=== PATIENT | male | born 1970 | race Caucasian/White ===

== ENCOUNTER 2017-10-24 14:36 | Emergency (ER) | payer BC, MEDICAID, SELFPAY ==
[2017-10-24 14:37] VITALS: BP 162/111; PULSE 72; RESP 18; TEMP 37.4; O2SAT 97; BMI 34.2
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
[2017-10-24] MEDS: Naproxen 500 MG Tablet PO (16:26)
== END 2017-10-24 16:30 | disposition home or self-care (01) ==
PROVIDERS: Emergency Provider Emergency Medicine; Family Provider Family Medicine; PCP Family Medicine
DX: R51 Headache (principal); R10.9 Unspecified abdominal pain; V43.52XA Car driver injured in collision with other type car in traffic accident, initial encounter; Y93.9 Activity, unspecified; Y92.410 Unspecified street and highway as the place of occurrence of the external cause; Y99.9 Unspecified external cause status; I10 Essential (primary) hypertension
CPT/HCPCS: 99283

== ENCOUNTER → 2018-04-20 11:32 | Outpatient (CLI) | payer BC, MEDICAID, SELFPAY ==
[2018-04-20 15:45] LABS: Cholesterol 182 mg/dL (200); Glucose 87 mg/dL (74-106); High Density Lipoprotein 36 mg/dL; Triglycerides 128 mg/dL; Very Low Density Lipoprotein 26 mg/dL (5-40)
== END ==
PROVIDERS: Family Provider Family Medicine; PCP Family Medicine; Visit Provider Family Medicine
DX: Z00.00 Encounter for general adult medical examination without abnormal findings (principal)
CPT/HCPCS: 36415; 80061; 82947

== ENCOUNTER → 2018-12-03 10:54 | Outpatient (CLI) | payer BC, SELFPAY ==
[2018-12-03 12:47] LABS: Absolute Lymphocyte Count 2.76 X10^3/ul (0.83-4.51); Absolute Neutrophil Count 5.7 X10^3/uL (2.0-7.7); Basophil# 0.04 X10^3/uL; Basophil% 0.4 % (0-1); Differential Indicated SCAN CRITERIA MET; Eosinophil# 0.23 X10^3/uL; Eosinophils% 2.4 % (0-5); Lymphocyte # 2.76 X10^3/ul (4.0); Lymphocyte % 28.5 % (19-41); Mean Corp Hgb Conc 32.5 g/gl (32-36); Mean Corpuscular Hgb 19.7 pg (27.0-32.0); Mean Corpuscular Volume 60.6 fL (80-94); Monocyte# 0.92 X10^3/uL; Monocyte% 9.5 % (0-10); Neutrophil # 5.74 X10^3/uL (2.7-7.7); Neutrophil % 59.1 % (47-70); POSITIVE COUNT NO; POSITIVE DIFFERENTIAL NO; POSITIVE MORPHOLOGY YES; Platelet Count 167 K/mm3 (150-450); RBC Distribution Width CV 16.3 % (11.6-14.6); RBC Distribution Width SD 33.9 fl (35.1-43.9); White Blood Count 9.7 K/mm3 (4.4-11.0)
[2018-12-03 13:05] LABS: Platelet Morphology LARGE
[2018-12-03 13:09] LABS: Hemoglobin A1c 7.9 % (4.2-6.3)
[2018-12-03 13:31] LABS: ALB/GLOB Ratio 1.4 RATIO (0.9-2.4); AST(SGOT) 21 U/L (15-37); Alanine Aminotransfer ALT/SGPT 46 U/L (16-61); Albumin, Serum 4.3 g/dL (3.2-5.0); Alkaline Phosphatase 106 U/L (45-117); Anion Gap 7 (5-15); BUN 13 mg/dL (7-18); BUN/Creat Ratio 11.2 RATIO (10-20); Chloride 104 mmol/L (98-107); Creatinine, Serum 1.16 mg/dL (0.70-1.30); EST Glomerular Filtration Rate 72 mL/min (>60); Est Glom Filt Rate - Afr Amer 87 mL/min (>60); Ferritin 450 ng/mL (26-388); Glucose 167 mg/dL (74-106); Magnesium 2.1 mg/dL (1.6-2.6); Potassium 3.6 mmol/L (3.5-5.1); Protein, Total 7.3 g/dL (6.4-8.2); Sodium Level 137 mmol/L (136-145); Thyroid Stim Hormone (TSH) 4.06 uIU/mL (0.358-3.74)
== END ==
PROVIDERS: Family Provider Family Medicine; PCP Family Medicine; Referring Provider Family Medicine; Visit Provider Family Medicine
DX: E29.1 Testicular hypofunction (principal); E11.9 Type 2 diabetes mellitus without complications; D56.9 Thalassemia, unspecified; I10 Essential (primary) hypertension
CPT/HCPCS: 36415; 80053; 82728; 83036; 83735; 84403; 84443; 85025

== ENCOUNTER → 2020-04-04 12:01 | Outpatient (CLI) | payer OTHER, MEDICARE, SELFPAY ==
--- NOTE | 2020-04-04 12:10 | RAD_ITS ---
STUDY: X-RAY - PELVIS AND BILATERAL HIPS REASON FOR EXAM: Male, 49 years old. BILATERAL HIP PAIN,NO INJURY TECHNIQUE: AP view of the pelvis.? 2 views of the right hip, and 2 views of the left hip were obtained. COMPARISON: None. FINDINGS: There is a non-specific bowel gas pattern. There are multiple calcified phleboliths. Normal bilateral iliac wings, sacroiliac joints and visualized sacrum. Normal bilateral superior and inferior pubic rami. Normal pubic symphysis. Normal bilateral ischial tuberosities. Degenerative spurring. Findings suggestive of femoral acetabular impingement. There is osteoarthritic spur formation of the right acetabular rim. There is moderate articular joint space narrowing of the right hip. Degenerative spurring of the femoral head. There is osteoarthritic spur formation of the left acetabular rim. There is moderate articular joint space narrowing of the left hip. Femoral acetabular impingement. RAD/Hips B/L min 2 views w/ Pelvis IMPRESSION: Bilateral joint space narrowing and femoral acetabular impingement. Electronically Signed: Arben Aburto, at 16:01 EDT , Service support ,
== END ==
PROVIDERS: PCP Family Medicine; Referring Provider Family Medicine; Visit Provider Family Medicine
DX: M25.50 Pain in unspecified joint (principal)
CPT/HCPCS: 73521

== ENCOUNTER → 2020-11-07 10:57 | Outpatient (CLI) | payer OTHER, MEDICARE, SELFPAY ==
--- NOTE | 2020-11-07 11:06 | MRI_ITS ---
STUDY: MRI BRAIN WITH AND WITHOUT CONTRAST (ATTENTION INTERNAL AUDITORY CANALS - I.A.C.''s) REASON FOR EXAM: Male, 50 years old. Right year hearing loss TECHNIQUE: Standardized multiplanar fat and water weighted pulse sequences were obtained. 22ml Dotarem contrast material was administered intravenously for the contrast portion of the examination. COMPARISON: None. FINDINGS: Normal bilateral temporal bones. Normal bilateral internal auditory canals. There is no demonstrated intracanalicular or cisternal vestibular schwannoma (acoustic neuroma). There is no enhancement of the bilateral VIIth or VIIIth cranial nerves. Normal bilateral cochlea, vestibules and semicircular canals. Normal size of the ventricles and extra-axial spaces for the patient''s age. Normal white matter tracts of the supratentorial brain. There is no evidence for recent intracranial ischemia or other cause of cytotoxic edema on diffusion weighted imaging (DWI). Normal bilateral basal ganglia. Normal thalami. Normal flow voids within the major intracranial circulation suggesting patency by spin echo criteria. Normal venous enhancement. There is no enhancing intra-axial or extra-axial abnormality. There is no extra-axial fluid accumulation. Normal sella turcica, pituitary gland, infundibular stalk, optic chiasm and hypothalamus. Normal tectal plate and pineal gland. Normal midbrain, silvio and medulla. Normal cerebellum. Normal basal cisterns. No demonstrated orbital abnormality, within the constraints of a routine brain study. Normal visualized paranasal sinuses. Normal calvarium and skull base. Normal visualized soft tissue structures. Normal visualized upper cervical spine. MRI/Brain W/WO Contrast IMPRESSION: Normal unenhanced and enhanced MRI of the bilateral internal auditory canals (I.A.C''s). Electronically Signed: Juan Carlos Ramos MD at 20:05 EDT , Service support ,
== END ==
PROVIDERS: PCP Family Medicine; Referring Provider Otolaryngology; Visit Provider Otolaryngology
DX: H90.41 Sensorineural hearing loss, unilateral, right ear, with unrestricted hearing on the contralateral side (principal)
CPT/HCPCS: 70553; A9575

== ENCOUNTER → 2020-11-13 10:08 | Outpatient (CLI) | payer OTHER, MEDICARE, SELFPAY ==
[2020-11-13 12:26] LABS: Absolute Lymphocyte Count 3.02 X10^3/uL (0.83-4.51); Absolute Neutrophil Count 3.6 X10^3/uL (2.0-7.7); Basophil# 0.09 X10^3/uL; Basophil% 1.2 % (0-1); Eosinophil# 0.23 X10^3/uL; Hematocrit 42.8 % (40-54); Lymphocyte # 3.02 X10^3/ul (4.0); Mean Corp Hgb Conc 30.4 g/dL (32-36); Mean Corpuscular Hgb 19.1 pg (27.0-32.0); Mean Platelet Vol. 10.9 fl (6.2-12.0); Monocyte# 0.64 X10^3/uL; Monocyte% 8.5 % (0-10); NRBC Flagged by Analyzer 0 % (0-5); Neutrophil # 3.55 X10^3/uL (2.7-7.7); Platelet Count 223 K/mm3 (150-450); RBC Distribution Width CV 17.9 % (11.6-14.6); RBC Distribution Width SD 34.7 fl (35.1-43.9); Red Blood Count 6.79 M/mm3 (4.6-6.2); White Blood Count 7.6 K/mm3 (4.4-11.0)
[2020-11-13 12:48] LABS: ALB/GLOB Ratio 1.3 RATIO (0.9-2.4); AST(SGOT) 18 U/L (15-37); Alanine Aminotransfer ALT/SGPT 58 U/L (16-61); Albumin, Serum 4.2 g/dL (3.2-5.0); Alkaline Phosphatase 112 U/L (45-117); Anion Gap 5 (5-15); BUN 13 mg/dL (7-18); Calcium,Total 9.2 mg/dL (8.5-10.1); Chloride 101 mmol/L (98-107); Creatinine, Serum 1.18 mg/dL (0.70-1.30); EST Glomerular Filtration Rate 70 mL/min (>60); Est Glom Filt Rate - Afr Amer 84 mL/min (>60); Globulin 3.3 g/dL (2.2-4.2); Glucose 261 mg/dL (74-106); Potassium 4.1 mmol/L (3.5-5.1); Protein, Total 7.5 g/dL (6.4-8.2); Sodium Level 137 mmol/L (136-145)
[2020-11-13 12:54] LABS: Hemoglobin A1c 11.4 % (3.8-5.6)
== END ==
PROVIDERS: Visit Provider Family Medicine
DX: E11.9 Type 2 diabetes mellitus without complications (principal); M16.10 Unilateral primary osteoarthritis, unspecified hip
CPT/HCPCS: 36415; 80053; 83036; 85025

== ENCOUNTER → 2021-07-26 13:45 | Outpatient (CLI) | payer OTHER, MEDICARE, SELFPAY ==
--- NOTE | 2021-07-26 13:48 | CT_ITS ---
STUDY: CT PELVIS WITH CONTRAST REASON FOR EXAM: Male, 50 years old. Right groin pain. Prior hernia repair. RADIATION DOSAGE (If Supplied By Facility): CTDIvol = ( 27.97 ) mGy, DLP = ( 1222.90 ) mGycm TECHNIQUE: Transaxial imaging of the pelvis was performed without oral contrast. IV 100mL Isovue-370 was administered intravenously. Individualized dose optimization techniques were used for this CT. COMPARISON: None. FINDINGS: Mild degree of diffuse bladder wall thickening of the urinary bladder is not completely distended at this time. Prostate calcifications. Normal visualized small intestine. There are scattered colonic diverticula of the sigmoid colon consistent with chronic diverticulosis. There is no pelvic fluid. There is no pelvic lymphadenopathy or mass lesion. Normal visualized pelvic arteries. Small bilateral inguinal hernias containing fat slightly larger on the right side. Normal osseous structures. CT/Pelvis WITH IV Contrast IMPRESSION: Mild degree of diffuse bladder wall thickening of the lateral is not completely distended. Small bilateral inguinal hernias containing fat slightly larger on the right side. Electronically Signed: Arben Aburto MD at 14:16 EST , Service support ,
[2021-07-26 14:01] LABS: CREATININE FINGERSTICK < 0.6 mg/dL (0.70-1.30); EGFR FINGERSTICK > 60.0000 mL/min (>60)
== END ==
PROVIDERS: PCP Family Medicine; Visit Provider Family Medicine
DX: K46.9 Unspecified abdominal hernia without obstruction or gangrene (principal)
CPT/HCPCS: 72193; Q9967

== ENCOUNTER → 2021-08-01 15:04 | Outpatient (CLI) | payer OTHER, MEDICARE, SELFPAY | PROVIDERS: PCP Family Medicine; Visit Provider Nurse Practitioner Family | DX: U07.1 COVID-19 (principal) | CPT/HCPCS: 87635; U0005; U0003 ==

== ENCOUNTER → 2022-04-02 | Outpatient (CLI) | payer OTHER, MEDICARE, SELFPAY ==
[2022-04-02 12:29] LABS: Absolute Lymphocyte Count 2.36 X10^3/uL (0.83-4.51); Absolute Neutrophil Count 3.8 X10^3/uL (2.0-7.7); Basophil# 0.09 X10^3/uL; Basophil% 1.3 % (0-1); Eosinophil# 0.28 X10^3/uL; Hematocrit 43.2 % (40-54); Hemoglobin 13.1 g/dL (13.0-16.5); Lymphocyte # 2.36 X10^3/ul (0.83-4.51); Lymphocyte % 33.7 % (19-41); Mean Corp Hgb Conc 30.3 g/dL (32-36); Mean Corpuscular Volume 62.5 fL (80-94); Mean Platelet Vol. 10.6 fl (6.2-12.0); Monocyte# 0.47 X10^3/uL; Monocyte% 6.7 % (0-10); NRBC Flagged by Analyzer 0 % (0-5); Neutrophil # 3.78 X10^3/uL (2.7-7.7); Platelet Count 223 K/mm3 (150-450); RBC Distribution Width CV 18.6 % (11.6-14.6); RBC Distribution Width SD 35.2 fl (35.1-43.9); Red Blood Count 6.91 M/mm3 (4.6-6.2)
[2022-04-02 12:42] LABS: Microalbumin,Random Urine 7.1 mg/L (NO RANGE EST.); Microalbumin:Creatinine Ratio 3.4 mg/g CRE (<30 mg/g CRE)
[2022-04-02 13:00] LABS: ALB/GLOB Ratio 1.3 RATIO (0.9-2.4); AST(SGOT) 18 U/L (15-37); Alanine Aminotransfer ALT/SGPT 49 U/L (16-61); Albumin, Serum 4.2 g/dL (3.2-5.0); Alkaline Phosphatase 93 U/L (45-117); Anion Gap 7 (5-15); BUN 14 mg/dL (7-18); BUN/Creat Ratio 11.7 RATIO (10-20); Calcium,Total 9.1 mg/dL (8.5-10.1); Chloride 105 mmol/L (98-107); EST Glomerular Filtration Rate 68 mL/min (>60); Est Glom Filt Rate - Afr Amer 82 mL/min (>60); Ferritin 264 ng/mL (26-388); Globulin 3.3 g/dL (2.2-4.2); Glucose 87 mg/dL (74-106); PSA,Total - Annual Screen 0.77 ng/mL (0.00-4.00); Potassium 4.1 mmol/L (3.5-5.1); Protein, Total 7.5 g/dL (6.4-8.2); Sodium Level 141 mmol/L (136-145); Thyroid Stim Hormone (TSH) 3.77 uIU/mL (0.358-3.74)
[2022-04-04 16:09] LABS: Endomysial Antibody IgA Negative (Negative)
[2022-04-04 17:19] LABS: Immunoglobulin A 41 mg/dL (90-386); t-Transglutaminase IgA <2 U/mL (0-3)
== END | disposition home or self-care (01) ==
LOC: MFPLAB 10:48
PROVIDERS: PCP Family Medicine; Visit Provider Family Medicine
DX: Z00.00 Encounter for general adult medical examination without abnormal findings (principal); E11.9 Type 2 diabetes mellitus without complications; D56.9 Thalassemia, unspecified; Z12.5 Encounter for screening for malignant neoplasm of prostate
CPT/HCPCS: 36415; 80053; 82043; 82570; 82728; 82784; 83516; 84153; 84443; 85025; 86255; G0103

== ENCOUNTER → 2022-09-26 | Outpatient (CLI) | payer OTHER, MEDICARE, SELFPAY ==
[2022-09-26 12:51] LABS: Absolute Lymphocyte Count 2.91 X10^3/uL (0.83-4.51); Absolute Neutrophil Count 3.9 X10^3/uL (2.0-7.7); Basophil# 0.09 X10^3/uL; Basophil% 1.1 % (0-1); Eosinophil# 0.28 X10^3/uL; Eosinophils% 3.6 % (0-5); Hematocrit 43.4 % (40-54); Hemoglobin 13.1 g/dL (13.0-16.5); Lymphocyte # 2.91 X10^3/ul (0.83-4.51); Lymphocyte % 37.2 % (19-41); Mean Corp Hgb Conc 30.2 g/dL (32-36); Mean Corpuscular Hgb 19.4 pg (27.0-32.0); Mean Corpuscular Volume 64.2 fL (80-94); Monocyte# 0.63 X10^3/uL; NRBC Flagged by Analyzer 0 % (0-5); Neutrophil % 49.8 % (47-70); Platelet Count 221 K/mm3 (150-450); RBC Distribution Width CV 18.2 % (11.6-14.6); Red Blood Count 6.76 M/mm3 (4.6-6.2); White Blood Count 7.8 K/mm3 (4.4-11.0)
[2022-09-26 12:55] LABS: ALB/GLOB Ratio 1.2 RATIO (0.9-2.4); AST(SGOT) 18 U/L (15-37); Alanine Aminotransfer ALT/SGPT 45 U/L (16-61); Albumin, Serum 4.2 g/dL (3.2-5.0); Alkaline Phosphatase 97 U/L (45-117); Anion Gap 5 (5-15); BUN 14 mg/dL (7-18); BUN/Creat Ratio 13.7 RATIO (10-20); Calcium,Total 9.6 mg/dL (8.5-10.1); Chloride 107 mmol/L (98-107); Cholesterol 187 mg/dL (200); Creatinine, Serum 1.02 mg/dL (0.70-1.30); EST Glomerular Filtration Rate 82 mL/min (>60); Est Glom Filt Rate - Afr Amer 99 mL/min (>60); Ferritin 323 ng/mL (26-388); Globulin 3.4 g/dL (2.2-4.2); Glucose 100 mg/dL (74-106); Hemoglobin A1c 6.7 % (3.8-5.6); High Density Lipoprotein 38 mg/dL; Protein, Total 7.6 g/dL (6.4-8.2); Sodium Level 142 mmol/L (136-145); Triglycerides 137 mg/dL; Very Low Density Lipoprotein 27 mg/dL (5-40)
[2022-09-26 13:04] LABS: Microalbumin,Random Urine 8.4 mg/L (NO RANGE EST.)
== END | disposition home or self-care (01) ==
LOC: MTLAB 11:03
PROVIDERS: PCP Family Medicine; Referring Provider Family Medicine; Visit Provider Family Medicine
DX: E11.9 Type 2 diabetes mellitus without complications (principal); I10 Essential (primary) hypertension; E61.1 Iron deficiency
CPT/HCPCS: 36415; 80053; 80061; 82043; 82728; 83036; 85025

== ENCOUNTER → 2023-04-08 | Outpatient (CLI) | payer OTHER, MEDICARE, SELFPAY ==
[2023-04-08 12:30] LABS: Absolute Lymphocyte Count 2.59 X10^3/uL (0.83-4.51); Absolute Neutrophil Count 4.2 X10^3/uL (2.0-7.7); Basophil% 1.3 % (0-1); Eosinophil# 0.22 X10^3/uL; Eosinophils% 2.8 % (0-5); Hematocrit 42.2 % (40-54); Hemoglobin 12.8 g/dL (13.0-16.5); Lymphocyte # 2.59 X10^3/ul (0.83-4.51); Lymphocyte % 33.5 % (19-41); Mean Corp Hgb Conc 30.3 g/dL (32-36); Mean Corpuscular Hgb 19.2 pg (27.0-32.0); Mean Corpuscular Volume 63.4 fL (80-94); Mean Platelet Vol. 10.3 fl (6.2-12.0); Monocyte# 0.66 X10^3/uL; Monocyte% 8.5 % (0-10); NRBC Flagged by Analyzer 0 % (0-5); Neutrophil # 4.15 X10^3/uL (2.7-7.7); Neutrophil % 53.8 % (47-70); Platelet Count 220 K/mm3 (150-450); RBC Distribution Width CV 18.3 % (11.6-14.6); Red Blood Count 6.66 M/mm3 (4.6-6.2); White Blood Count 7.7 K/mm3 (4.4-11.0)
[2023-04-08 12:51] LABS: ALB/GLOB Ratio 1.2 RATIO (0.9-2.4); AST(SGOT) 19 U/L (15-37); Alanine Aminotransfer ALT/SGPT 51 U/L (16-61); Albumin, Serum 4.1 g/dL (3.2-5.0); Alkaline Phosphatase 107 U/L (45-117); Anion Gap 6 (5-15); BUN 14 mg/dL (7-18); BUN/Creat Ratio 11.6 RATIO (10-20); Calcium,Total 9.4 mg/dL (8.5-10.1); Chloride 104 mmol/L (98-107); Creatinine, Serum 1.21 mg/dL (0.70-1.30); EST Glomerular Filtration Rate 67 mL/min (>60); Est Glom Filt Rate - Afr Amer 81 mL/min (>60); Globulin 3.3 g/dL (2.2-4.2); Glucose 174 mg/dL (74-106); Protein, Total 7.4 g/dL (6.4-8.2); Sodium Level 139 mmol/L (136-145)
== END | disposition home or self-care (01) ==
LOC: MFPLAB 10:22
PROVIDERS: PCP Family Medicine; Visit Provider Family Medicine
DX: Z00.00 Encounter for general adult medical examination without abnormal findings (principal)
CPT/HCPCS: 36415; 80053; 85025

== ENCOUNTER → 2023-09-19 | Outpatient (CLI) | payer OTHER, MEDICARE, SELFPAY ==
--- OUTSIDE RECORDS SUMMARY | 2023-09-19 12:35 | XMS RPT_ITS | CCD ---
Author Name Unknown Address [address] [place] [address] Organization [facility] Care Team Providers Care Molder Labels Name Role Phone MARRY CHAN (PT) Unavailable UnavailANDREA Lu Unavailable Unavailable Sadiq Macias MD Primary Care Provider [phone] SADIQ MACIAS Primary Care Unavailable ANIL CARTAGENA Attending Unavailable ADIEL GAINES Referring Unavailable SADIQ MACIAS Primary Care Unavailable ADIEL GAINES Attending Unavailable SDAIQ MACIAS Primary Care Unavailable ADIEL GANIES Attending Unavailable ADIEL GAINES Referring Unavailable Allergies Allergy Classification Reported Allergen(s) Allergy Type Date of Onset Reaction(s) Facility (4 sources) Niacin; Translations: [NIACIN] Drug Allergy 07-21-2023 Itching, Other (See Comments) [facility] Medications Current Medications Medication Drug Class(es) Dates Sig (Normalized) Sig (Original) allopurinol 300 mg oral tablet (2 sources) Xanthine Oxidase Inhibitor Start: 0 take 1 tablet by mouth twice daily allopurinoL (ZYLOPRIM) 300 MG tablet Take 1 (one) tablet (300 mg total) by mouth 2 (two) times a day . 0 04/04/2020 Active amLODIPine 5 mg / valsartan 160 mg oral tablet (2 sources) Dihydropyridine Calcium Channel Peri, Angiotensin 2 Receptor Peri take 1 tablet by mouth once daily amLODIPine-valsar ferreira (EXFORGE) 5-160 mg per tablet Take 1 (one) tablet by mouth daily . 0 Active ascorbic acid 500 mg oral tablet (2 sources) Vitamin C take 1 tablet by mouth once daily ascorbic acid, vitamin C, (VITAMIN C) 500 MG tablet Take 1 (one) tablet (500 mg total) by mouth daily . 0 Active ferrous sulfate 325 mg oral tablet (2 sources) take 1 tablet by mouth once daily at breakfast ferrous sulfate 325 (65 FE) MG tablet Take 1 (one) tablet (325 mg total) by mouth daily with breakfast . 0 Active glimepiride 2 mg oral tablet (2 sources) Sulfonylurea Start: 3 take 1 tablet by mouth once daily glimepiride (AMARYL) 2 MG tablet Take 1 (one) tablet (2 mg total) by mouth daily . 0 07/09/2023 Active hydroCHLOROthiazide 25 mg / triamterene 37.5 mg oral capsule (2 sources) Potassium-sparing Diuretic, Thiazide Diuretic Start: 3 End: 4 take 1 capsule by mouth once daily triamterene-hydro chlorothiazide (DYAZIDE) 37.5-25 mg per capsule Indications: Meniere disease, right Take 1 (one) capsule by mouth daily . 30 capsule 11 07/22/2023 07/21/2024 Active lansoprazole 30 mg delayed release oral capsule (2 sources) Proton Pump Inhibitor Start: 7 Prevacid 30 mg capsule Take by mouth . 0 03/24/2007 Active meloxicam 15 mg oral tablet (2 sources) Nonsteroidal Anti-inflammatory Drug take 1 tablet by mouth once daily meloxicam (MOBIC) 15 MG tablet Take 1 (one) tablet (15 mg total) by mouth daily . 0 Active multivitamin (THERAGRAN) per tablet (2 sources) take 1 tablet by mouth once daily multivitamin (THERAGRAN) per tablet Take 1 (one) tablet by mouth daily . 0 Active pioglitazone 30 mg oral tablet (2 sources) Peroxisome Proliferator Receptor alpha Agonist, Peroxisome Proliferator Receptor gamma Agonist, Thiazolidinedione Start: 0 take 1 tablet by mouth once daily pioglitazone (ACTOS) 30 MG tablet Take 1 (one) tablet (30 mg total) by mouth daily . 0 04/04/2020 Active Semglee,insulin glarg-yfgn,Pen 100 unit/mL (3 mL) InPn (2 sources) Start: 3 inject 10 [IU] by subcutaneous injection once daily Semglee,insulin glarg-yfgn,Pen 100 unit/mL (3 mL) InPn INJECT TEN UNITS SUBCUTANEOUSLY DAILY 0 04/30/2023 Active sildenafil 100 mg oral tablet (2 sources) Phosphodiesterase 5 Inhibitor Start: 3 sildenafiL (VIAGRA) 100 MG tablet tadalafil 5 mg oral tablet (2 sources) Phosphodiesterase 5 Inhibitor Start: 0 take 1 tablet by mouth once daily tadalafiL 5 MG tablet Take 1 (one) tablet (5 mg total) by mouth daily . 0 04/06/2020 Active 60 actuat testosterone 20.25 mg/actuat topical gel (2 sources) Androgen testosterone (ANDROGEL) 20.25 mg/1.25 gram (1.62 %) GlPm Place 4 (four) Pump (81 mg total) on the skin daily . 0 Active valsartan 160 mg oral tablet (2 sources) Angiotensin 2 Receptor Peri Start: 7 valsartan (Diovan) 160 MG tablet Take 1 (one) tablet (160 mg total) by mouth . 0 01/30/2007 Active Completed/Discontinued Medications Medication Drug Class(es) Dates Sig (Normalized) Sig (Original) ondansetron 8 mg oral tablet (2 sources) Serotonin-3 Receptor Antagonist Start: 07-21-2023 End: 07-22-2023 ondansetron (ZOFRAN) tablet 8 mg Problems Active Problems Problem Classification Problem Date Documented Date Episodic/Chronic Conditions associated with dizziness or vertigo (3 sources) Meniere's disease of right inner ear; Translations: [Meniere's disease, right ear] Onset: 07-21-2023 07-21-2023 Chronic Nausea and vomiting (3 sources) Nausea; Translations: [Nausea] Onset: 07-21-2023 07-21-2023 Episodic Other ear and sense organ disorders (1 source) Asymmetrical sensorineural hearing loss; Translations: [Sensorineural hearing loss, bilateral] 07-21-2023 Chronic Other ear and sense organ disorders (4 sources) Sensorineural hearing loss, bilateral; Translations: [Sensorineural hearing loss, bilateral] Onset: 07-21-2023 Chronic Other ear and sense organ disorders (2 sources) Tinnitus of right ear; Translations: [Tinnitus, right ear] 07-21-2023 Episodic Other ear and sense organ disorders (1 source) Hyperacusis of right ear; Translations: [Hyperacusis, right ear] 07-21-2023 Episodic Other ear and sense organ disorders (2 sources) Abnormal auditory perception; Translations: [Other abnormal auditory perceptions, right ear] 07-21-2023 Episodic Other ear and sense organ disorders (4 sources) Tinnitus, right ear; Translations: [Tinnitus, right ear] Onset: 07-21-2023 Episodic Other ear and sense organ disorders (2 sources) Other abnormal auditory perceptions, right ear; Translations: [Other abnormal auditory perceptions, right ear] Onset: 07-21-2023 Episodic Other ear and sense organ disorders (2 sources) Hyperacusis, right ear; Translations: [Hyperacusis, right ear] Onset: 07-21-2023 Episodic Other nervous system disorders (1 source) Mononeuropathy, unspecified; Translations: [Mononeuropathy, unspecified] Onset: 04-22-2017 Chronic Past or Other Problems Problem Classification Problem Date Documented Da te Episodic/Chronic Abdominal pain (1 source) Generalized abdominal pain; Translations: [Generalized abdominal pain] Onset: 04-22-2017 Episodic Sprains and strains (1 source) Strain of muscle, fascia and tendon of abdomen, initial encounter; Translations: [Strain of muscle, fascia and tendon of abdomen, initial encounter] Onset: 04-22-2017 Episodic Results Test Name Value Interpretation Reference Range Facil ity Vital Signs Date Time Vital Sign Value Performing Clinician Faci lit 07-21-2023 17:00-0500 Diastolic blood pressure 80 mm[Hg] Adiel Gaines MD Work Phone: [facility] 07-21-2023 17:00-0500 Heart rate 97 /min Adiel Gaines MD Work Phone: [facility] 07-21-2023 17:00-0500 SaO2% (BldA) [Mass fraction] 92 % Adiel Gaines MD Work Phone: [facility] 07-21-2023 17:00-0500 Systolic blood pressure 127 mm[Hg] Adiel Gaines MD Work Phone: [facility] 07-21-2023 15:35-0500 Body height 180.3 cm Adiel Gaines MD Work Phone: [facility] 07-21-2023 15:35-0500 Body mass index (BMI) [Ratio] 35.5 kg/m2 Adiel Gaines MD Work Phone: [facility] 07-21-2023 15:35-0500 Body temperature 98.71 [degF] Adiel Gaines MD Work Phone: [facility] 07-21-2023 15:35-0500 Body weight 115.44 kg Adiel Gaines MD Work Phone: [facility] Encounters Encounter Date Encounter Type Care Provider Facility Start: 08-26-2023 End: 08-27-2023 [facility] Start: 07-21-2023 End: 07-25-2023 ambulatory [facility] Start: 07-21-2023 End: 07-21-2023 ambulatory [facility] Start: 07-21-2023 End: 07-21-2023 Clinical Support Anil Anders Work Phone: [facility] Plan of Treatment Date Care Activity Detail Author Start: 04-04-2023 Influenza vaccination Sequential Influenza Vaccine (#1) [facility] Start: 2021 Administration of herpes zoster vaccine Zoster Vaccines (1 of 2) [facility] Start: 2021 Screening for malignant neoplasm of colon Flexible sigmoidoscopy [facility] Start: 1989 Hepatitis C screening Hepatitis C Screening [facility] Start: 1986 HIV screening HIV Screening [facility] Start: 1983 Depression screening using PHQ-9 (Patient Health Questionnaire 9) score Depression Screening (PHQ-2/9) [facility] Start: 1974 History and physical examination, annual for health maintenance Wellness Visit [facility] Start: 03-11-1972 COVID-19 Vaccine (#1) COVID-19 Vaccine (#1) [facility] Start: 1971 Prostate specific antigen measurement PSA Level [facility] Start: 1971 Screening for malignant neoplasm of colon [facility] Start: 1971 Tetanus vaccination Tetanus: Every 10yrs [facility] End: 07-21-2024 Creatinine [Mass/volume] in Serum or Plasma Creatinine, Serum Lab Routine Meniere disease, right 1 Occurrences starting 07/21/2023 until 07/21/2024 [facility] Work Phone: Payers Date Payer Category Payer Unknown [facility] CHOICE x [id number] 2023-Present [phone] [address] [address] [place] [address] [id number] 2020 Medicare MEDICARE MEDICAR E PART A & B [id number] 2020-Present [phone] CGS [id number] PART A CLAIMS [address] [address] [place] [address] [id number] 2020 Medicare [id number] 2019 Unknown [id number] 1971 Unknown [id number] 1971 Unknown [id number] 1971 Unknown [id number] Social History Date Type Detail Facility Start: 07-21-2023 Tobacco smoking status NHIS Never sm oked tobacco [facility] Start: 07-21-2023 Tobacco use and exposure Smokeless t obacco non-user [facility] Start: 07-21-2023 Alcohol intake Lifetime non-d gil (finding) [facility] Start: 07-21-2023 History of Social function [facility] Start: 07-21-2023 Tobacco use panel [facility] Start: 1970 Sex Assigned At Not on file O [facility] Medical Equipment Procedure Code Equipment Code Equipment Origin al Text Equipment Identifier Dates use once daily w ith insulin injection [id number] Start: 04-30-2023 History of Present illness Narrative 07-21-2023 Anil Cartagena AuD - 07/21/2023 4:39 PM EST Note Date & Type Note Facility 12-18-2023 History of Presen t illness Narrative Formatting of this note is different fro m the original. Images from the original note were not included. [facility] [address] [address] Name: Hollie Castillo : 1970 Date: 07/21/23 History & Purpose of Evaluation: Hollie Castillo was seen today for audiologic assessment at the request of Adiel Gaines MD. Mr Castillo' chief auditory complaint was bilateral hearing loss, right ear worse than left ear. Onset was approximately three years ago, and he believes it was sudden. Other related problems include episodic vertigo, and loud, high pitched sounds causing him discomfort. Please see below for other pertinent case history information as reported by Mr. Castillo. Otologic Symptoms R L Noise Exposure Y N Medical Y N Hearing Loss (right worse than left) [x] [x] Occupational [] [x] Hypertension [x] [] Tinnitus [x] [] Recreational-sometimes wears hearing protection [x] [] Diabetes [x] [] Otalgia [] [] [] [x] Hypercholesterolemia [] [x] Otorrhea [] [] Heart Disease [] [x] Aural Fullness-: pressure [x] [] Family History [] [x] Stroke [] [x] Meniere s Disease [] [] Cancer [] [x] Y N Sp./Lang. Skills Ear Surgery R L Vertigo [x] [] Appropriate [x] [] PE Tubes [] [] Dizziness [] [x] In Therapy [] [x] Mastoidectomy [] [] Imbalance [] [x] Social Acoustic Neuroma [] [] Vestibular Rehab [] [x] Depression [] [x] Tympanoplasty [] [] Hearing aids: Other: Results: Otoscopy: Performed by Dr. Gaines prior to testing. Puretone Air & Bone Conduction Audiometry: Pure tone audiometry revealed a mild-moderate sensorineural hearing loss in the left ear, and a profound sensorineural hearing loss in the right ear. Speech Audiometry: Speech recognition thresholds (no response in the right ear) were in good agreement with puretone averages. Word recognition was fair (70%) in the left ear when assessed at a level slightly above normal conversational loudness using recorded male voice. Mr. Castillo was not able to repeat words presented to the right ear at a level well above normal conversational loudness. Immittance Audiometry: Tympanometry revealed normal ear canal volume, normal static compliance, and normal middle ear resting pressure (Jerger type A), bilaterally. Following tympanometry, Mr. Castillo reported a feeling of nausea and vertigo. Impression: Middle ear testing was consistent with a well-ventilated middle ear system, bilaterally, but also elicited Mr. Castillo' vertigo. Puretone audiometry revealed a mild-moderate sensorineural hearing loss in the left ear and a profound sensorineural hearing loss in the right ear. Recommendations: Follow up with Dr. Gaines. Further testing and/or re-evaluation at Dr. Gaines' discretion. Re-evaluate in one year, or sooner if concerns arise, to monitor hearing. Use of hearing protection is recommended when in high levels of noise. The above was explained to Mr. Castillo and he expressed understanding. Electronically Signed by: Martita Anaya, [facility] 07/21/23 4:39 PM Audiogram: documented in this encounter [facility] History of Present illness Narrative 07-21-2023 Adiel Gaines MD - 07/21/2023 3:58 PM Odalys Klein MA - 07/21/2023 3:32 PM EST Note Date & Type Note Facility 07-21-2023 History of Presen t illness Narrative [facility] [address] [facility] [place] [address] [facility] [address] Dept: [phone] Adiel Gaines MD Hollie Castillo 52 y.o. male Patient presents with a chief complaint of Tinnitus (Tinnitus, fluid in ear, hole in ear drum, no pain/New Pt) and Hearing Loss (Hearing loss x 3 ears, dull dull pain x 3 ears, vertigo upon waking and intermittently in afternoons) BP 127/80 Pulse 97 Temp 98.7 F (37.1 C) (Temporal) Ht 5' 11 Wt 115.4 kg (254 lb 8 oz) SpO2 92% BMI 35.50 kg/m History of Presenting Illness: The patient/caregiver reports a history of complaint with the following features: Onset: started 3 years ago Timing: comes and goes, often in the morning when first gets up, but has also occurred later in the day. Duration: last 30 minutes to an hour Quality: vertigo episodes, fullness, reduced hearing, tinnitus in right ear Location: right ear Severity: pain mid dull ache in ear, and pressure in right bahai Risk factors: diabetes Alleviating factors: no relief with antibiotics, diuretics Aggravating factors: laying down and resting Associated factors: has been told previously that he has severe hearing loss on the right He reports that he is intolerant of loud high pitched sound on the right, but unable to hear below that volume. Review of systems covering 10 systems is reviewed and pertinent positives and negatives are noted as above. Past Medical History: Diagnosis Date Chronic arthritis Both hips, knees Left groin hernia Right groin hernia Current Outpatient Medications: allopurinoL (ZYLOPRIM) 300 MG tablet, Take 1 (one) tablet (300 mg total) by mouth 2 (two) times a day ., Disp: , Rfl: glimepiride (AMARYL) 2 MG tablet, Take 1 (one) tablet (2 mg total) by mouth daily ., Disp: , Rfl: pioglitazone (ACTOS) 30 MG tablet, Take 1 (one) tablet (30 mg total) by mouth daily ., Disp: , Rfl: Prevacid 30 mg capsule, Take by mouth ., Disp: , Rfl: Semglee,insulin glarg-yfgn,Pen 100 unit/mL (3 mL) InPn, INJECT TEN UNITS SUBCUTANEOUSLY DAILY, Disp: , Rfl: sildenafiL (VIAGRA) 100 MG tablet, , Disp: , Rfl: tadalafiL 5 MG tablet, Take 1 (one) tablet (5 mg total) by mouth daily ., Disp: , Rfl: Unifine Pentips 31 gauge x 3/16 Ndle, use once daily with insulin injection, Disp: , Rfl: valsartan (Diovan) 160 MG tablet, Take 1 (one) tablet (160 mg total) by mouth ., Disp: , Rfl: amLODIPine-valsartan (EXFORGE) 5-160 mg per tablet, Take 1 (one) tablet by mouth daily ., Disp: , Rfl: ascorbic acid, vitamin C, (VITAMIN C) 500 MG tablet, Take 1 (one) tablet (500 mg total) by mouth daily ., Disp: , Rfl: ferrous sulfate 325 (65 FE) MG tablet, Take 1 (one) tablet (325 mg total) by mouth daily with breakfast ., Disp: , Rfl: meloxicam (MOBIC) 15 MG tablet, Take 1 (one) tablet (15 mg total) by mouth daily ., Disp: , Rfl: multivitamin (THERAGRAN) per tablet, Take 1 (one) tablet by mouth daily ., Disp: , Rfl: ondansetron (ZOFRAN-ODT) 4 MG disintegrating tablet, Dissolve 1 (one) tablet (4 mg total) on top of tongue every 8 (eight) hours as needed for nausea ., Disp: 20 tablet, Rfl: 0 testosterone (ANDROGEL) 20.25 mg/1.25 gram (1.62 %) GlPm, Place 4 (four) Pump (81 mg total) on the skin daily ., Disp: , Rfl: triamterene-hydrochlorothiazide (DYAZIDE) 37.5-25 mg per capsule, Take 1 (one) capsule by mouth daily ., Disp: 30 capsule, Rfl: 11 No current facility-administered medications for this visit. Allergies Allergen Reactions Niacin Itching and Other (See Comments) shaking Past Surgical History: Procedure Laterality Date HERNIA REPAIR 3 surgeries Social History Socioeconomic History Marital status: Tobacco Use Smoking status: Never Smokeless tobacco: Never Substance and Sexual Activity Alcohol use: Never Drug use: Never Family History Problem Relation Age of Onset Hypertension Mother Cancer Mother Diabetes Mother Hypertension Father Diabetes Father Hyperlipidemia Maternal Grandmother Cancer Maternal Grandmother Cancer Paternal Grandmother Hyperlipidemia Sister Diabetes Sister PHYSICAL EXAM: The patient was examined today 07/22/2023 with findings as follows: CONSTITUTIONAL: General Appearance: well-appearing, nontoxic, alert, no acute distress Communication: understanding at normal conversational tones, normal voicing, speech intelligible HEAD/FACE: Head: atraumatic, normocephalic, no lesions Facial Inspection: no lesions, healthy skin Facial Strength: motor strength normal, symmetric strength, symmetric movement Sinuses: no sinus tenderness Salivary Glands: no enlargements of parotid glands, no tenderness of parotid glands, no masses of parotid glands, clear salivary flow on palpation from Stensen's ducts, no duct stones of Stensen's duct, no enlargement of submandibular glands, no tenderness of submandibular glands, no masses of submandibular glands, clear salivary flow from [place]'s ducts, no stones of [place]'s ducts Temporomandibular Joint: no crepitus with motion, no tenderness on palpation, no trismus, motion symmetric EYES: Pupils: PERRLA, extra-ocular movements intact, no nystagmus, sclera white, no redness of eyes, no watering of eyes EARS: Bilateral External Ears: no pits, no tags Right External Ear: normally formed, no lesions, no mastoid tenderness Left External Ear: normally formed, no lesions, no mastoid tenderness Right External Auditory Canal: normal, healthy skin, no obstructing cerumen, no discharge Left External Auditory Canal: normal, healthy skin, no obstructing cerumen, no discharge Right Tympanic Membrane: normal landmarks, translucent, mobile to pneumatic otoscopy, no perforation Left Tympanic Membrane: normal landmarks, translucent, mobile to pneumatic otoscopy, no perforation Hearing: reduced to spoken voice, intact to finger rub NOSE: Nasal Skin: no lesions, no lacerations, no scars Nasal Dorsum: symmetric with no visible or palpable deformities Nasal Tip: normal symmetric nasal tip, normal nasal valves Nasal Mucosa: normal, pink and moist Septum: not markedly deformed, midline, no exposed vessels, no bleeding, no septal granuloma Turbinates: normal size and conformation Nasopharynx: normal ORAL CAVITY/MOUTH: Lips, teeth, gums: normal lips, normal gums, dentition intact, no dental pain on palpation Oral Mucosa: normal, moist, no lesions Palate: normal hard palate, normal soft palate, symmetric palatal elevation Floor of Mouth: normal floor of mouth Tongue: normal tongue, no lesions, no edema, no masses, normal mucosa, mobile Tonsils: normal tonsils, symmetric, no lesions Posterior pharynx: normal NECK: Neck: no masses, trachea midline, normal range of motion, no cysts or pits, no tenderness to palpation Thyroid: normal thyroid, no enlargement, no tenderness, no nodules LYMPH NODES: Cervical: no palpable lymph node enlargement RESPIRATORY: Inspection/Auscultation: good air movement, chest expands symmetrically, normal breath sounds, no wheezing, no stridor CARDIOVASCULAR SYSTEM: Auscultation: regular rate and rhythm, carotid pulse normal, no carotid thrills, no carotid bruits Observation/Palpation of Peripheral Vascular System: no varicosities, no cyanosis, no edema SKIN: General Appearance: no lesions, warm and dry, normal turgor, no bruising NEUROLOGICAL SYSTEM: Orientation: oriented to time, oriented to place, oriented to person Cranial Nerves: Cranial Nerves II-XII intact, normal facial movement PSYCHIATRIC: Mood and affect: normal mood, normal affect Assessment and Plan: Although he relates a history of right perforation and effusion, I see neither on exam today. His symptoms and history is most consistent with Meniere's disease. I have advised the patient and/or caregiver that the symptoms and exam findings are most consistent with Meniere's disease. We have discussed that the symptoms result from inflammation of a fluid filled sac in the inner ear. We have discussed that although this usually occurs spontaneously in isolation, these symptoms can also result from other disease of the ear or central nervous system. Treatment strategies of maintenance of a low sodium diet, use of diuretic agents, and vestibular sedatives are discussed. The natural history of the disease process is discussed including fluctuation of symptoms, the possibilty of sudden attacks with fall or other injury, the need for taking precautions to prevent injury from fall, sudden and permanent hearing loss or balance problems, and the need for continued follow-up are discussed. The patient and/or caregiver is able to state an understanding of these recommendations and is agreeable to the treatment plan. Audiometric testing is performed today and independently reviewed and interpreted. This shows a flat moderate loss on the left and a profound loss on the right. Tympanometry shows normal compliance consistent with normally ventilated middle ear spaces. This is not suggestive of middle ear effusion or perforation. He has never had any imaging and MRI to exclude any retrocochlear pathology is advised as Meniere's is a diagnosis of exclusion. If this is clear, and symptoms remain suggestive of this process, ablative procedures with transtympanic gentamicin are reasonable if his symptoms remain refractory to treatment. He states a preference to try another round of diuretic and sodium restriction and this is reasonable until further workup is completed. Interestingly, tympanometry today has triggered his vertigo. This can be seen with dehiscent semicircular canal as well and again imaging is suggested. This would be atypical for Meniere's disease. Screening for rare infectious causes ofhis symptoms is also. Due to his vertiginous symptoms, his spouse was called to pick him up and drive him home to ensure his safety. Monitoring of his vitals did not show any acute changes and I do not feel that ED evaluation is warranted. I have spent greater than 60 minutes in today's visit today in discussion with the patient and caregiver, review of records, and care coordination. This excludes any procedures separately billed. 1. Tinnitus of right ear Ambulatory referral to Audiology MR IAC With And Without Contrast Lyme Disease IgG/IgM w/Western Blot Reflex, Blood 2. Meniere disease, right Creatinine, Serum FTA Lyme Disease IgG/IgM w/Western Blot Reflex, Blood triamterene-hydrochlorothiazide (DYAZIDE) 37.5-25 mg per capsule DISCONTINUED: triamterene-hydrochlorothiazide (DYAZIDE) 37.5-25 mg per capsule 3. Asymmetric SNHL (sensorineural hearing loss) MR IAC With And Without Contrast 4. Hyperacusis, right 5. Abnormal auditory perception of right ear Ambulatory referral to Audiology 6. Nausea ondansetron (ZOFRAN-ODT) 4 MG disintegrating tablet DISCONTINUED: ondansetron (ZOFRAN) tablet 8 mg No follow-ups on file. The patient and/or caregiver is to notify the office if no improvement or worsening of symptoms is noted prior to the scheduled follow-up for sooner evaluation. The patient and/or caregiver is able to state an understanding of these recommendations and is agreeable to the treatment plan. --Adiel Gaines MD on 07/22/2023 at 8:02 AM An electronic signature was used to authenticate this note. Review of Systems Constitutional: Positive for fatigue. HENT: Positive for congestion, ear pain, hearing loss, sinus pressure, sinus pain and tinnitus. Eyes: Negative. Respiratory: Negative. Cardiovascular: Negative. Gastrointestinal: Negative. Endocrine: Negative. Genitourinary: Negative. Musculoskeletal: Positive for arthralgias and joint swelling. Skin: Negative. Allergic/Immunologic: Negative. Neurological: Positive for dizziness, light-headedness and headaches. Hematological: Negative. Psychiatric/Behavioral: Negative. documented in this encounter [facility] Evaluation note Note Date & Type Note Facility documented in this encounter [facility] Evaluation note Note Date & Type Note Facility documented in this encounter [facility] Summary Purpose Family History No Family History Records FoundNo Family History Records FoundNo Family History Records Found Advance Directives No Advanced Directives Records FoundNo Advanced Directives Records FoundNo Advanced Directives Records Found Reason for Referral Specialty Diagnoses / Procedures Referred By Stan reynoso Referred To Contact Radiology Diagnoses Tinnitus of right ear Asymmetric SNHL (sensorineural hearing loss) Procedures MR IAC With And Without Contrast Adiel Gaines MD [address] [email or web address] [address] [place] [address] Referral ID Status Reason Start Date Expiration Date V isits Requested Visits Authorized [id number] New Request 07/21/2023 07/20/2024 1 1 Specialty Diagnoses / Procedures Referred By Stan reynoso Referred To Contact Audiology Diagnoses Tinnitus of right ear Abnormal auditory perception of right ear Adiel Gaines MD [address] [employer] [address] [place] [address] [facility] [address] [place] [address] Referral ID Status Reason Start Date Expiration Date Visits Re quested Visits Authorized [id number] Closed 07/21/2023 07/20/2024 1 1 Additional Source Comments (unrecognized sect ion and content) No Status Records FoundNo Status Records FoundNo Status Records Found INFORMATION SOURCE (unrecogn ized section and content) DATE CREATED AUTHOR AUTHOR'S ORGANIZ ATION 07/26/2023 [facility] DATE CREATED AUTHOR AUTHOR'S ORGANIZ ATION 09/18/2023 [facility] Reason for Visit (unrecogniz ed section and content) Specialty Diagnoses / Procedures Referred By Stan reynoso Referred To Contact Audiology Diagnoses Tinnitus of right ear Abnormal auditory perception of right ear Adiel Gaines MD [address] [email or web address] [address] [place] [address] [facility] [address] [place] [address] Referral ID Status Reason Start Date Expiration Date Visits Re quested Visits Authorized [id number] Closed 07/21/2023 07/20/2024 1 1 Care Teams (unrecognized sec tion and content) [employer] Relationship Specialty Start Date End Date Sadiq Macias MD [address] [place] [address] PCP - General Family Medicine 06/24/23 FOR RECORDS PERTAINING TO PATIENTS WHO ARE OR HAVE BEEN ENROLLED IN A CHEMICAL DEPENDENCY/SUBSTANCEABUSE PROGRAM, SOME INFORMATION MAY BE OMITTED. This clinical summary was aggregated from multiple sources. Caution should be exercised in using it in the provision of clinical care. This summary normalizes information from multiple sources, and as a consequence, information in this document may materially change the coding, format and clinical context of patient data. In addition, data may be omitted in some cases. CLINICAL DECISIONS SHOULD BE BASED ON THE PRIMARY CLINICAL RECORDS. [employer] [facility]. provides no warranty or guarantee of the accuracy or completeness of information in this document.
[2023-09-19 15:48] LABS: Absolute Neutrophil Count 3.6 X10^3/uL (2.0-7.7); Basophil# 0.07 X10^3/uL; Basophil% 0.9 % (0-1); Eosinophils% 2.7 % (0-5); Hematocrit 41.7 % (40-54); Lymphocyte % 40.7 % (19-41); Mean Corp Hgb Conc 31.2 g/dL (32-36); Mean Corpuscular Hgb 19.4 pg (27.0-32.0); Mean Corpuscular Volume 62.2 fL (80-94); Monocyte# 0.49 X10^3/uL; Monocyte% 6.6 % (0-10); NRBC Flagged by Analyzer 0 % (0-5); Neutrophil % 48.8 % (47-70); Platelet Count 258 K/mm3 (150-450); RBC Distribution Width CV 18.6 % (11.6-14.6); RBC Distribution Width SD 35.8 fl (35.1-43.9); White Blood Count 7.4 K/mm3 (4.4-11.0)
[2023-09-19 16:34] LABS: ALB/GLOB Ratio 1.3 RATIO (0.9-2.4); AST(SGOT) 22 U/L (15-37); Alanine Aminotransfer ALT/SGPT 67 U/L (16-61); Albumin, Serum 4.3 g/dL (3.2-5.0); Alkaline Phosphatase 102 U/L (45-117); Anion Gap 3 (5-15); BUN 15 mg/dL (7-18); BUN/Creat Ratio 13.4 RATIO (10-20); Calcium,Total 9.6 mg/dL (8.5-10.1); Chloride 107 mmol/L (98-107); Creatinine, Serum 1.12 mg/dL (0.70-1.30); EST Glomerular Filtration Rate 73 mL/min (>60); Est Glom Filt Rate - Afr Amer 89 mL/min (>60); Globulin 3.4 g/dL (2.2-4.2); Glucose 199 mg/dL (74-106); Lipase 27 U/L (13-75); Potassium 4.2 mmol/L (3.5-5.1); Protein, Total 7.7 g/dL (6.4-8.2); Sodium Level 138 mmol/L (136-145); Thyroid Stim Hormone (TSH) 3.82 uIU/mL (0.358-3.74)
== END | disposition home or self-care (01) ==
LOC: MFPLAB 12:13
PROVIDERS: PCP Family Medicine; Visit Provider Family Medicine
DX: R23.2 Flushing (principal); R19.7 Diarrhea, unspecified; R42 Dizziness and giddiness
CPT/HCPCS: 36415; 80053; 83690; 84443; 85025

== ENCOUNTER → 2023-09-22 | Outpatient (CLI) | payer OTHER, MEDICARE, SELFPAY ==
[2023-09-27 10:08] LABS: Cortisol, Free 24Ur 17 ug/24 hr (5-64); Cortisol, Urinary Free 15 ug/L (Undefined); Metanephrine, Ur 88 ug/L (Undefined); Metanephrines, 24Ur 97 ug/24 hr (58-276); Normetanephrines, 24Ur 406 ug/24 hr (156-729); Normetanephrines, Ur 369 ug/L (Undefined)
[2023-09-29 22:06] LABS: Fats, Neutral Normal (.); Fats, Total Increased (.)
== END | disposition home or self-care (01) ==
LOC: LABSPEC 10:54
PROVIDERS: PCP Family Medicine; Referring Provider Family Medicine; Visit Provider Family Medicine
DX: R19.7 Diarrhea, unspecified (principal)
CPT/HCPCS: 81050; 82530; 82705; 83835

== ENCOUNTER → 2024-04-13 | Outpatient (CLI) | payer OTHER, MEDICARE, SELFPAY ==
[2024-04-13 12:06] LABS: Absolute Lymphocyte Count 2.95 X10^3/uL (0.83-4.51); Basophil# 0.07 X10^3/uL; Basophil% 0.9 % (0-1); Eosinophil# 0.21 X10^3/uL; Eosinophils% 2.7 % (0-5); Hematocrit 44.5 % (40-54); Hemoglobin 13.4 g/dL (13.0-16.5); Lymphocyte # 2.95 X10^3/ul (0.83-4.51); Lymphocyte % 37.8 % (19-41); Mean Corp Hgb Conc 30.1 g/dL (32-36); Mean Corpuscular Hgb 18.8 pg (27.0-32.0); Mean Corpuscular Volume 62.5 fL (80-94); Mean Platelet Vol. 10.4 fl (6.2-12.0); Monocyte# 0.58 X10^3/uL; Monocyte% 7.4 % (0-10); NRBC Flagged by Analyzer 0 % (0-5); Neutrophil # 3.98 X10^3/uL (2.7-7.7); Neutrophil % 50.9 % (47-70); Platelet Count 226 K/mm3 (150-450); RBC Distribution Width CV 18.7 % (11.6-14.6); RBC Distribution Width SD 35.3 fl (35.1-43.9); Red Blood Count 7.12 M/mm3 (4.6-6.2); White Blood Count 7.8 K/mm3 (4.4-11.0)
[2024-04-13 12:46] LABS: ALB/GLOB Ratio 1.2 RATIO (0.9-2.4); AST(SGOT) 14 U/L (15-37); Alanine Aminotransfer ALT/SGPT 42 U/L (16-61); Albumin, Serum 4.2 g/dL (3.2-5.0); Alkaline Phosphatase 89 U/L (45-117); Anion Gap 4 (5-15); BUN 15 mg/dL (7-18); BUN/Creat Ratio 13.5 RATIO (10-20); Chloride 106 mmol/L (98-107); Creatinine, Serum 1.11 mg/dL (0.70-1.30); EST Glomerular Filtration Rate 74 mL/min (>60); Est Glom Filt Rate - Afr Amer 89 mL/min (>60); Globulin 3.4 g/dL (2.2-4.2); Glucose 103 mg/dL (74-106); Iron 84 ug/dL (65-175); Iron Binding Capacity,Total 337 ug/dL (250-450); PERCENT IRON SATURATION 24.9 % (15.0-55.0); Potassium 4.4 mmol/L (3.5-5.1); Protein, Total 7.6 g/dL (6.4-8.2); Sodium Level 138 mmol/L (136-145)
[2024-04-13 13:01] LABS: Microalbumin,Random Urine 6.6 mg/L (NO RANGE EST.); Microalbumin:Creatinine Ratio 3.5 mg/g CRE (<30 mg/g CRE)
[2024-04-20 12:09] LABS: Testosterone, Free 8.83 ng/dL (5.00-21.00); Testosterone, Total 327 ng/dL (264-916)
== END | disposition home or self-care (01) ==
PROVIDERS: Family Medicine; PCP Family Medicine; Visit Provider Family Medicine
DX: Z00.00 Encounter for general adult medical examination without abnormal findings (principal); E11.9 Type 2 diabetes mellitus without complications; Z12.5 Encounter for screening for malignant neoplasm of prostate; E29.1 Testicular hypofunction; E61.1 Iron deficiency; R79.89 Other specified abnormal findings of blood chemistry
CPT/HCPCS: 36415; 80053; 82043; 82570; 83036; 83540; 83550; 84153; 84402; 84403; 84443; 85025; G0103

== ENCOUNTER → 2024-11-19 | Outpatient (CLI) | payer OTHER, MEDICARE, SELFPAY ==
[2024-11-19 15:27] LABS: Absolute Neutrophil Count 4.2 X10^3/uL (2.0-7.7); Basophil# 0.08 X10^3/uL; Eosinophil# 0.24 X10^3/uL; Hematocrit 42.5 % (40-54); Hemoglobin 13.4 g/dL (13.0-16.5); Lymphocyte % 34.3 % (19-41); Mean Corp Hgb Conc 31.5 g/dL (32-36); Mean Corpuscular Hgb 19.6 pg (27.0-32.0); Mean Corpuscular Volume 62.1 fL (80-94); Monocyte# 0.68 X10^3/uL; Monocyte% 8.6 % (0-10); NRBC Flagged by Analyzer 0 % (0-5); Neutrophil # 4.16 X10^3/uL (2.7-7.7); Neutrophil % 52.8 % (47-70); Platelet Count 230 K/mm3 (150-450); RBC Distribution Width CV 19.1 % (11.6-14.6); Red Blood Count 6.84 M/mm3 (4.6-6.2); White Blood Count 7.9 K/mm3 (4.4-11.0)
[2024-11-19 16:11] LABS: ALB/GLOB Ratio 1.6 RATIO (0.9-2.4); AST(SGOT) 28 U/L (<=37); Alanine Aminotransfer ALT/SGPT 54 U/L (<=46); Albumin, Serum 4.5 g/dL (3.5-5.0); Alkaline Phosphatase 93 U/L (40-129); Anion Gap 10 (5-15); BUN 17 mg/dL (4-19); Calcium,Total 9.7 mg/dL (7.6-11.0); Carbon Dioxide 26.7 mmol/L (21.0-32.0); Chloride 103 mmol/L (98-108); Creatinine, Serum 1.31 mg/dL (0.70-1.20); EST Glomerular Filtration Rate 65 (>60); Globulin 2.7 g/dL (2.2-4.2); Glucose 144 mg/dL (70-99); Potassium 4.6 mmol/L (3.3-5.1); Protein, Total 7.2 g/dL (5.9-8.4); Sodium Level 140 mmol/L (133-145); Total Bilirubin 0.62 mg/dL (0.00-1.30)
[2024-11-19 16:27] LABS: Microalbumin,Random Urine < 12.0 mg/L (NO RANGE EST.); Microalbumin:Creatinine Ratio UNABLE TO CALCULATE mg/g CRE
== END | disposition home or self-care (01) ==
LOC: MFPLAB 12:30
PROVIDERS: PCP Family Medicine; Referring Provider Family Medicine; Visit Provider Family Medicine
DX: E11.9 Type 2 diabetes mellitus without complications (principal)
CPT/HCPCS: 36415; 80053; 82043; 82570; 85025

== ENCOUNTER → 2025-04-22 | Outpatient (CLI) | payer OTHER, MEDICARE, SELFPAY ==
[2025-04-22 10:36] LABS: Hematocrit 42.6 % (40-54); Hemoglobin 13.1 g/dL (13.0-16.5); Mean Corp Hgb Conc 30.8 g/dL (32-36); Mean Corpuscular Volume 62.3 fL (80-94); Platelet Count 228 K/mm3 (150-450); RBC Distribution Width CV 18.6 % (11.6-14.6); RBC Distribution Width SD 35.2 fl (35.1-43.9); Red Blood Count 6.84 M/mm3 (4.6-6.2); White Blood Count 9.7 K/mm3 (4.4-11.0)
[2025-04-22 13:18] LABS: AST(SGOT) 21 U/L (<=37); Alanine Aminotransfer ALT/SGPT 38 U/L (<=46); Albumin, Serum 4.6 g/dL (3.5-5.0); Alkaline Phosphatase 94 U/L (40-129); Anion Gap 11 (5-15); BUN 15 mg/dL (4-19); BUN/Creat Ratio 12.3 RATIO (10-20); Calcium,Total 9.7 mg/dL (7.6-11.0); Carbon Dioxide 27.7 mmol/L (21.0-32.0); Chloride 103 mmol/L (98-108); Globulin 2.6 g/dL (2.2-4.2); Glucose 113 mg/dL (70-99); PSA,Total - Annual Screen 0.47 ng/mL (0.02-4.00); Potassium 4.7 mmol/L (3.3-5.1)
== END | disposition home or self-care (01) ==
LOC: MFPLAB 09:15
PROVIDERS: PCP Family Medicine; Visit Provider Family Medicine
DX: I10 Essential (primary) hypertension (principal); E11.9 Type 2 diabetes mellitus without complications; Z12.5 Encounter for screening for malignant neoplasm of prostate
CPT/HCPCS: 36415; 80053; 84153; 84443; 85027; G0103